=== PATIENT | male | born 1975 | race Hispanic/Latino ===

== ENCOUNTER 2017-02-06 16:55 | Inpatient (IN) | payer MEDICAID ==
[2017-02-06 16:55] VITALS: BMI 22.4
[2017-02-06] MEDS ORDERED: Sodium Chloride 0.9% 1,000 ML IV ONE (17:29)
[2017-02-06 17:40] LABS: BASO % 0.3 % (0.0-2.0); EOS # 0.1 K/uL (0.0-0.7); EOS % 0.5 % (0.0-4.0); HEMATOCRIT 50.2 % (35.0-51.0); LYMPH # 1.3 K/uL (1.0-4.3); LYMPH % 12.5 % (20.0-40.0); MEAN CELL VOLUME 93.6 fL (80.0-94.0); MEAN CORPUSCULAR HEMOGLOBIN 32.1 pg (27.0-31.0); MEAN CORPUSCULAR HGB CONC 34.3 g/dL (33.0-37.0); MEAN PLATELET VOLUME 8.5 fL (7.2-11.7); MONO # 0.8 K/uL (0.0-0.8); MONO % 7.3 % (0.0-10.0); WHITE BLOOD COUNT 10.4 K/uL (4.8-10.8)
[2017-02-06 17:45] LABS: CHLORIDE 101 mmol/L (98-107)
[2017-02-06 17:46] LABS: POTASSIUM 4.3 mmol/L (3.6-5.2); SODIUM 139 mmol/L (132-148)
[2017-02-06 17:48] LABS: ALB/GLOB RATIO 1.2 (1.0-2.1); ALKALINE PHOSPHATASE 60 U/L (38-126); ALT/SGPT 20 U/L (21-72); AST/SGOT 22 U/L (17-59); BILIRUBIN,TOTAL 0.9 mg/dL (0.2-1.3); BLOOD UREA NITROGEN 12 mg/dL (9-20); CARBON DIOXIDE 21 mmol/L (22-30); GFR AFRICAN-AMERICAN > 60; GLUCOSE,RANDOM 118 mg/dL (75-110); TOTAL PROTEIN 8.6 g/dL (6.3-8.3)
[2017-02-06 17:49] LABS: ALCOHOL SERUM < 10 mg/dl (0-10); CALCIUM 9.2 mg/dl (8.6-10.4)
--- NOTE | 2017-02-06 18:07 | C.PDOC ---
History Of Present Illness 41-year-old male, presents to the emergency department requesting heroin detox. Patient injects heroin, last use was 14:00 today. Patient has no current physical complaints. Time Seen by Provider: 02/06/17 17:22 Chief Complaint (Nursing): Substance Abuse History Per: Patient History/Exam Limitations: no limitations Onset/Duration Of Symptoms: Days Current Symptoms Are (Timing): Still Present Modifying Factor(s): Narcotics Severity: Mild Past Medical History Reviewed: Historical Data, Nursing Documentation, Vital Signs Vital Signs: Last Vital Signs Temp 97.4 F L 02/06/17 16:58 Pulse 119 H 02/06/17 16:58 Resp 18 02/06/17 16:58 BP 122/81 02/06/17 16:58 Pulse Ox 95 02/06/17 19:03 - Medical History PMH: Anxiety, Depression, Hepatitis, Seizures - [facility] Procedures DETOXIFICATION SERVICES FOR SUBSTANCE ABUSE TREATMENT (07/30/16) Family History: States: No Known Family Hx - Social History Hx Tobacco Use: Yes Hx Alcohol Use: Yes Hx Substance Use: Yes - Immunization History Hx Tetanus Toxoid Vaccination: Yes Hx Influenza Vaccination: No Hx Pneumococcal Vaccination: No Review Of Systems Except As Marked, All Systems Reviewed And Found Negative. Constitutional: Negative for: Fever, Chills Cardiovascular: Negative for: Chest Pain Respiratory: Negative for: Shortness of Breath Neurological: Negative for: Weakness, Numbness Psych: Positive for: Other (heroin dependence). Negative for: Suicidal ideation Physical Exam - Physical Exam Appears: Non-toxic, No Acute Distress, Other (calm and cooperative) Skin: Normal Color, Warm, Dry, No Rash Head: Atraumatic, Normacephalic Eye(s): bilateral: Normal Inspection, PERRL, EOMI Oral Mucosa: Moist Neck: Normal, Normal ROM Cardiovascular: Rhythm Regular Respiratory: Normal Breath Sounds, No Rales, No Rhonchi, No Wheezing Gastrointestinal/Abdominal: Normal Exam, Bowel Sounds, Soft, No Tenderness Extremity: Normal ROM Neurological/Psych: Oriented x3 Gait: Steady ED Course And Treatment - Laboratory Results Result Diagrams: 02/06/17 17:34 02/06/17 17:34 O2 Sat by Pulse Oximetry: 95 (RA) Pulse Ox Interpretation: Normal Progress Note: Blood work, UA, UDS, CXR ordered and reviewed. Disposition - Disposition Disposition Time: 19:00 Condition: STABLE - Clinical Impression Clinical Impression: Heroin dependence - Scribe Statement The provider has reviewed the documentation as recorded by the Scribe Martinez Dejesus All medical record entries made by the Scribe were at my direction and personally dictated by me. I have reviewed the chart and agree that the record accurately reflects my personal performance of the history, physical exam, medical decision making, and the department course for this patient. I have also personally directed, reviewed, and agree with the discharge instructions and disposition. Physician Patient Turnover Patient Signed Over To: Velma Gracia Handoff Comments: pending UA, UDS, CRISIS
[2017-02-06 20:32] LABS: RBC URINE < 1 /hpf (0-3); URINE BACTERIA OCC (<OCC); URINE BILIRUBIN NEGATIVE (NEGATIVE); URINE BLOOD NEGATIVE (NEGATIVE); URINE COLOR Yellow (YELLOW); URINE GLUCOSE (UA) NORMAL (Normal); URINE HYALINE CAST >20 /lpf (0-2); URINE KETONE NEGATIVE (NEGATIVE); URINE LEUKOCYTE ESTERASE NEG Leu/uL (Negative); URINE PROTEIN 2+ mg/dL (NEGATIVE); URINE UROBILINOGEN NORMAL mg/dL (0.2-1.0); WBC URINE 5 /hpf (0-5)
[2017-02-07] MEDS ORDERED: Benzocaine/Menthol (Cepacol) Lozenge PO PRN (00:42)
[2017-02-07] MEDS ORDERED: Aluminum Hydroxide/Magnesium Hydroxide Susp (30 mL) PO PRN (00:42)
--- NOTE | 2017-02-07 10:28 | RAD ---
PROCEDURE: CHEST RADIOGRAPH, 1 VIEW HISTORY: medical clearance COMPARISON: 01/11/2016 FINDINGS: LUNGS: Clear. PLEURA: No pneumothorax or pleural fluid seen. CARDIOVASCULAR: Normal. OSSEOUS STRUCTURES: No significant abnormalities. VISUALIZED UPPER ABDOMEN: Normal. OTHER FINDINGS: None. IMPRESSION: No active disease.
[2017-02-07] MEDS ORDERED: Buprenorphine Hydrochloride 2 mg SL ONE ×2 (11:56→13:00)
--- NOTE | 2017-02-07 14:37 | PCM.PSYCH ---
Initial Psychiatric Evaluation - Initial Psychiatric Evaluation Legal Status: Capacity Chief Complaint (in patient's own words): "I feel disappointed with myself and have no enjoyment" Patient's Reaction to Hospitalization: Positive History of Present Illness and Precipitating Events: The pt is seen, chart reviewed, case discussed. Patient is a 41 year old male. He is single and has two children. The children are 10 and 13 years of age. They currently live with their mother. Patient resides in [place] with his mom and brother. He is currently unemployed and supports himself through his family. 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 Patient reports using heroin intravenously on and off for 20 years. He states that he uses 6 bags a day. The last time he used was at 3pm. He was recently in the detox center here this past July. He went to [facility] after his detox treatment and stayed there for 2 months. The pressure of his brother selling drugs and family caused him to relapse again. He has been to several rehab centers over the course of the 20 years. Pt states he has been to [facility]'s rehab program 7 times and completed a 28 day rehab program in [place] in 2008. He was also hospitalized during this time in [place] due to wrist cutting brought on by a court appearance. He occasionally drinks 1/2 pints of alcohol several times a week and smokes 1/2 pack a day. Patient desires patch due to smoking. He is experiencing flashes, cramping, runny nose and shaking. Pt denies diarrhea, panic attacks or trauma. Patient slept well the night before. Patient is feeling disappointed with himself and has a low self-esteem. Patient denies having suicidal thoughts or hallucinations. His plan is to enter the [facility] outpatient program across the street. He states his brother attended previously and had a positive outcome. Past Psych Hx: Depression, anxiety, bipolar Fam Psych Hx: Substance abuse-brother, Alcoholism-father PMH: Hepatitis C Current Medications: Active Medications Generic Name Dose Route Start Last Admin Trade Name Freq PRN Reason Stop Dose Admin Al Hydrox/Mg Hydrox/Simethicone 30 ml 02/07/17 00:42 Maalox 30 Ml PO TID PRN Indigestion / Heartburn Benzocaine/Menthol 1 migel 02/07/17 00:42 Cepacol Sore Throat PO QID PRN Sore Throat Clonidine HCl 0.1 mg 02/07/17 00:42 Catapres PO Q8 PRN COWS Score More or Equal to 5 Hydroxyzine HCl 25 mg 02/07/17 00:44 Atarax PO Q6 PRN Agitation Loperamide HCl 2 mg 02/07/17 00:42 Imodium PO Q8 PRN Diarrhea Nicotine 1 patch 02/07/17 10:00 02/07/17 09:29 Nicoderm Cq TD 1 patch DAILY SHADY Administration Ondansetron HCl 4 mg 02/07/17 00:42 Zofran Tab PO Q8 PRN Nausea/Vomiting Pseudoephedrine HCl 60 mg 02/07/17 00:42 Sudafed Tab PO QID PRN Nasal/Sinus Congestion Trazodone HCl 50 mg 02/07/17 22:00 Desyrel PO HS SHADY Past Psychiatric History - Past Psychiatric History Pertinent Medical Hx (Current Medical&Sleep Prob, Allergies): Allergies Allergy/AdvReac Type Severity Reaction Status Date / Time No Known Allergies Allergy Verified 02/06/17 17:01 No Known Home Med 02/06/17 Review of Systems - EENT Nose/Mouth/Throat: Nasal Discharge - Gastrointestinal Gastrointestinal: Cramping - Psychiatric Psychiatric: Anxiety, Depression Additional comments: Shaking, flashes Mental Status Examination - Personal Presentation Personal Presentation: Dressed appropriate to season - Affect Affect: Constricted - Motor Activity Motor Activity: Calm - Reliability in Providing Information Reliability in Providing Information: Fair - Speech Speech: Organized - Mood Mood: Depressed, Anxious - Formal Thought Process Formal Thought Process: No Impairment - Cognitive Functions Orientation: Person, Place, Situation, Time Sensorium: Alert Attention/Concentration: Attentive Judgement: Intact, as evidence by: Insight regarding need for hospitalization Memory: Recent intact, as evidence by: Ability to recall events of the day, Remote intact, as evidenced by: Other (Was able to communicate events that occurred throughout the 20 years of substance abuse) - Risk Risk: Seizure, Withdrawal DSM 5 DX - DSM 5 DSM 5 Diagnosis: Opoid withdrawal-severe Major Depressive Disorder-moderate Generalized Anxiety Disorder-moderate - Recommended/Plan of Treatment Treatment Recommendations and Plan of Treatment: Opoids: Subutex Taper As needed meds Attend groups and activities CBT/LA Refer to program Depression: CBT and supportive psychotherapy Attend groups and activities Consider meds Anxiety: Supportive psychotherapy Counseled on outpatient programs Projected ELOS: 4 days - Smoking Cessation Smoking Cessation Initiated: Yes
[2017-02-08] MEDS: Buprenorphine Hydrochloride 2 mg SL SCH (10:02)
--- NOTE | 2017-02-08 15:08 | PCM.PYCHPN ---
Psychiatric Progress Note - Psychiatric Progress Note Patient seen today, length of contact: 18 min Patient Chief Complaint: "I'm doing better, considering" Problems Identified/Issues Discussed: The pt is seen, chart reviewed, case discussed with staff. Patient's mood is positive. He denies cramping and shaking. His current plan is to attend an intensive outpatient program once detox is over. After care discussed, support and psychoeduation given. Medical Problems: Hepatitis C Medication Change: Yes (Subutex taper) Medical Record Reviewed: Yes Mental Status Examination - Cognitive Function Orientation: Person, Place, Situation, Time Memory: Intact Attention: WNL Concentration: WNL Association: [facility] Fund of Knowledge: WN - Mood Mood: Depressed, Anxious - Affect Affect: Constricted - Speech Speech: Appropriate - Formal Thought Process Formal Thought Process: No Impairment - Suicidal Ideation Suicidal Ideation: No - Homicidal Ideation Homicidal Ideation: No Goal/Treatment Plan - Goal/Treatment Plan Need for Continued Stay: Remain at risks for inpatient hospitalization, Discharge may exacerbated symptoms Progress Toward Problem(s) and Goals/Treatment Plan: Opoids: Subutex Taper As needed meds Attend groups and activities CBT/KS Refer to program Depression: CBT and supportive psychotherapy Attend groups and activities Consider meds Anxiety: Supportive psychotherapy Counseled on outpatient programs Estimated Date of D/C: 02/09/17 - Smoking Cessation Smoking Cessation Initiated: Yes
[2017-02-09] MEDS: Buprenorphine Hydrochloride 2 mg SL SCH (09:47)
--- NOTE | 2017-02-09 12:23 | PCM.PYCHPN ---
Psychiatric Progress Note - Psychiatric Progress Note Patient seen today, length of contact: 18 min Patient Chief Complaint: I'm feeling much better Problems Identified/Issues Discussed: Patient seen and evaluated, chart reviewed and discussed with the nurse. The patient reports improvement in his mood but still reports withdrawal symptoms including anxiety and sweating. As per the nurse patient is improving but still reports of anxiety. Patient denies any suicidal ideation or homicidal ideation. Patient is taking medications and denies any side effects. Supportive therapy and psychoeducation were given. Medication Change: Yes (Subutex taper) Medical Record Reviewed: Yes Mental Status Examination - Cognitive Function Orientation: Person, Place, Situation, Time Memory: Intact Attention: WNL Concentration: WNL Association: WNL Fund of Knowledge: WNL - Mood Mood: Anxious - Affect Affect: Constricted - Speech Speech: Appropriate - Formal Thought Process Formal Thought Process: No Impairment - Suicidal Ideation Suicidal Ideation: No - Homicidal Ideation Homicidal Ideation: No Goal/Treatment Plan - Goal/Treatment Plan Need for Continued Stay: Remain at risks for inpatient hospitalization, Discharge may exacerbated symptoms Progress Toward Problem(s) and Goals/Treatment Plan: Opoid withdrawal-severe Major Depressive Disorder-moderate Generalized Anxiety Disorder-moderate Opoids: Subutex Taper As needed meds Attend groups and activities CBT/IN Refer to program Depression: CBT and supportive psychotherapy Attend groups and activities Consider meds Anxiety: Supportive psychotherapy Counseled on outpatient programs Estimated Date of D/C: 02/09/17 - Smoking Cessation Smoking Cessation Initiated: Yes
[2017-02-10] MEDS: Buprenorphine Hydrochloride 2 mg SL SCH (09:26)
--- NOTE | 2017-02-10 12:03 | PCM.PYCHPN ---
Psychiatric Progress Note - Psychiatric Progress Note Patient seen today, length of contact: 15 min Patient Chief Complaint: I'm feeling better Problems Identified/Issues Discussed: Patient seen and evaluated, chart reviewed and discussed with the nurse. as per staff patient is improving and he reports improvement in the withdrawal symptoms. patient reports a little bit anxiety but denies any withdrawal symptoms. He is looking forward to [facility]. Patient denies any suicidal ideation or homicidal ideation. Patient is taking medications and denies any side effects. Supportive therapy and psychoeducation were given. Medication Change: Yes (Subutex taper) Medical Record Reviewed: Yes Mental Status Examination - Cognitive Function Orientation: Person, Place, Situation, Time Memory: Intact Attention: WNL Concentration: WNL Association: WNL Fund of Knowledge: WNL - Mood Mood: Anxious - Affect Affect: Constricted - Speech Speech: Appropriate - Formal Thought Process Formal Thought Process: No Impairment - Suicidal Ideation Suicidal Ideation: No - Homicidal Ideation Homicidal Ideation: No Goal/Treatment Plan - Goal/Treatment Plan Need for Continued Stay: Remain at risks for inpatient hospitalization, Discharge may exacerbated symptoms Progress Toward Problem(s) and Goals/Treatment Plan: Opoid withdrawal-severe Major Depressive Disorder-moderate Generalized Anxiety Disorder-moderate Opoids: Subutex Taper As needed meds Attend groups and activities CBT/[place] Refer to program Depression: CBT and supportive psychotherapy Attend groups and activities Consider meds Anxiety: Supportive psychotherapy Counseled on outpatient programs Estimated Date of D/C: 02/09/17 - Smoking Cessation Smoking Cessation Initiated: Yes
[2017-02-10 19:14] VITALS: RESP 18
[2017-02-11 08:32] VITALS: BP 113/76; PULSE 70; TEMP 98; O2SAT 99
--- NOTE | 2017-02-11 08:38 | PCM.PYCHDC ---
Mental Status Examination - Mental Status Examination Orientation: Person, Place, Situation, Time Memory: Intact Mood: Depressed, Anxious Affect: Constricted Speech: Appropriate Attention: WNL Concentration: WNL Association: WNL Fund of Knowledge: WNL Formal Thought Process: No Impairment Suicidal Ideation: No Current Homicidal Ideation?: No Discharge Summary - Discharge Note Reason for Hospitalization: Opoid withdrawal-severe Major Depressive Disorder-moderate Generalized Anxiety Disorder-moderate Consultations:: List each consultation separately and include: 1. Reason for request. 2. Findings. 3. Follow-up Summary of Hospital Course include:: 1. Description of specific treatment plan utilized for patients during their course of treatmen. 2. Summarize the time- course for resolution of acute symptoms and/or regressed behaviors. 3. Describe issues identified and worked on during hospitalization. 4. Describe medication utilized. 5. Describe medical problems identified and treated. 6. Reassessment of suicide risk Summary of Hospital Course: The pt is seen, chart reviewed, case discussed. Patient is a 41 year old male. He is single and has two children. The children are 10 and 13 years of age. They currently live with their mother. Patient resides in [place] with his mom and brother. He is currently unemployed and supports himself through his family. 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 Patient reports using heroin intravenously on and off for 20 years. He states that he uses 6 bags a day. The last time he used was at 3pm. He was recently in the detox center here this past July. He went to [facility] after his detox treatment and stayed there for 2 months. The pressure of his brother selling drugs and family caused him to relapse again. He has been to several rehab centers over the course of the 20 years. Pt states he has been to [facility]'s rehab program 7 times and completed a 28 day rehab program in [place] in 2008. He was also hospitalized during this time in [place] due to wrist cutting brought on by a court appearance. He occasionally drinks 1/2 pints of alcohol several times a week and smokes 1/2 pack a day. Patient desires patch due to smoking. He is experiencing flashes, cramping, runny nose and shaking. Pt denies diarrhea, panic attacks or trauma. Patient slept well the night before. Patient is feeling disappointed with himself and has a low self-esteem. Patient denies having suicidal thoughts or hallucinations. His plan is to enter the [facility] outpatient program across the street. He states his brother attended previously and had a positive outcome. Past Psych Hx: Depression, anxiety, bipolar Fam Psych Hx: Substance abuse-brother, Alcoholism-father PMH: Hepatitis C Hospital Course: The pt is seen, chart reviewed, case discussed. The pt states he is feeling good today. Pt states mood has improved and states he has a clear head. He attended groups and activities, Mi and CBt used. He was cooperative and pleasant His plan is to attend the [facility] intensive outpatient program in [place]. - Final Diagnosis (DSM 5) Condition upon Discharge: STABLE DSM 5: Opioid withdrawal Opioid simeon d/o - severe Major Depressive Disorder-moderate Generalized Anxiety Disorder-moderate Disposition: HOME/ ROUTINE Follow-up Treatment Plan: Follow-up treatment plan: Continue on below meds Attend aftercare: [facility] Use relapse prevention skills Attend NA Return to ER if experience suicidal ideation, homicidal ideation, agitation. Prescriptions/Medication Reconciliation: traZODone [Desyrel] 50 mg PO HS #30 tab - Smoking Cessation Smoking Cessation Medication prescribed: No - Antipsychotic Medications Pt discharged on 2 or more routine antipsychotic medications: No
[2017-02-11] MEDS: Buprenorphine Hydrochloride 2 mg SL SCH (09:20)
== END 2017-02-11 09:30 | disposition home or self-care (01) | DRG 745 ==
LOC: C.ER 16:55 → C.7D 20:55
PROVIDERS: ADMIT Psychiatry & Neurology Psychiatry; ATTEND Psychiatry & Neurology Psychiatry
PROC: HZ2ZZZZ Detoxification Services for Substance Abuse Treatment (ICD-10-PCS; principal; 2017-02-06)
DX: F11.23 Opioid dependence with withdrawal (principal); F32.9 Major depressive disorder, single episode, unspecified; F17.200 Nicotine dependence, unspecified, uncomplicated; F41.1 Generalized anxiety disorder

== ENCOUNTER 2017-02-17 10:39 | Emergency (ER) | payer MEDICAID ==
[2017-02-17 10:39] VITALS: BMI 22.4
[2017-02-17] MEDS ORDERED: Morphine 4 MG/ML VIAL ONE ×2 (11:41→13:54)
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
[2017-02-17 11:51] VITALS: RESP 16; TEMP 98
--- NOTE | 2017-02-17 12:20 | CT ---
PROCEDURE: CT HEAD WITHOUT CONTRAST. HISTORY: injury COMPARISON: None available. TECHNIQUE: Axial computed tomography images were obtained through the head/brain without intravenous contrast. Radiation dose: Total exam DLP = 869.49 mGy-cm. This CT exam was performed using one or more of the following dose reduction techniques: Automated exposure control, adjustment of the mA and/or kV according to patient size, and/or use of iterative reconstruction technique. FINDINGS: HEMORRHAGE: No intracranial hemorrhage. BRAIN: No mass effect or edema. The mercer-white matter differentiation appears intact. Please note that MRI with diffusion imaging is more sensitive in the detection of acute ischemic event. VENTRICLES: No hydrocephalus. CALVARIUM: Unremarkable. PARANASAL SINUSES: Unremarkable as visualized. No significant inflammatory changes. MASTOID AIR CELLS: Unremarkable as visualized. No inflammatory changes. OTHER FINDINGS: None. IMPRESSION: No acute intracranial pathology identified.
--- NOTE | 2017-02-17 12:24 | CT ---
CT maxillofacial bones without IV contrast Indication: Injury Comparison: Noncontrast head performed the same day. Technique: Axial computed tomography images were obtained of the maxillofacial bones without the use of intravenous contrast. Coronal and sagittal reformatted images were generated and reviewed. This CT exam was performed using 1 or more of the falling dose reduction techniques: Automated exposure control, adjustment of the MAA and/or kV according to patient size, and/or use of iterative reconstruction technique. Radiation dose: Total exam DLP = 798.85 mGy-cm. Findings: Streak artifact from dental hardware. The facial bones appear intact without acute displaced fracture identified. The orbits appear unremarkable. The temporomandibular joints are located. The mastoid air cells appear clear. Mild mucosal thickening of the right maxillary sinus. The paranasal sinuses appear otherwise unremarkable without air air-fluid levels. The visualized brain appears normal. Impression: No acute findings identified. See above.
--- NOTE | 2017-02-17 12:57 | RAD ---
PROCEDURE: Left Knee Radiographs. HISTORY: COMPARISON: None available FINDINGS: BONES: No acute displaced fracture. JOINTS: No dislocation. JOINT EFFUSION: Trace suprapatellar joint effusion. OTHER FINDINGS: None. IMPRESSION: Trace suprapatellar joint effusion. No acute displaced fracture or dislocation identified. If symptoms persist, or if there is continued clinical concern, x-ray follow-up in 7-10 days should be considered.
--- NOTE | 2017-02-17 13:04 | RAD ---
PROCEDURE: Left wrist radiographs Left hand radiographs HISTORY: injury COMPARISON: None available. FINDINGS: Comminuted impacted fracture of the distal radius with intra-articular extension. Displaced acute fracture deformity of the ulna styloid. The remainder of the visualized osseous structures appear intact. Soft tissue swelling. No evidence of radiopaque foreign body. IMPRESSION: Comminuted impacted fracture deformity of the distal radius with intra-articular extension. Displaced acute fracture deformity of the ulna styloid. As associated soft tissue swelling.
--- NOTE | 2017-02-17 13:05 | RAD ---
PROCEDURE: Radiographs of the left elbow. HISTORY: injury COMPARISON: None available. FINDINGS: BONES: No acute displaced fracture. JOINTS: No dislocation. SOFT TISSUES: Unremarkable. No evidence of radiopaque foreign body. JOINT EFFUSION: No significant joint effusion. OTHER FINDINGS: None IMPRESSION: No acute displaced fracture, dislocation, or significant joint effusion identified. If symptoms persist, or if there is continued clinical concern, x-ray follow-up in 7-10 days should be considered.
[2017-02-17 13:57] VITALS: BP 128/71; PULSE 72; O2SAT 98
== END 2017-02-17 14:49 | disposition home or self-care (01) ==
LOC: C.ER 10:39
DX: S52.592A Other fractures of lower end of left radius, initial encounter for closed fracture (principal); S52.612A Displaced fracture of left ulna styloid process, initial encounter for closed fracture; S05.11XA Contusion of eyeball and orbital tissues, right eye, initial encounter; S00.81XA Abrasion of other part of head, initial encounter; W18.30XA Fall on same level, unspecified, initial encounter; Y93.55 Activity, bike riding
CPT/HCPCS: 29125; 70450; 70486; 73080; 73110; 73130; 73562; 96372; 99285; J2270

== ENCOUNTER 2017-02-17 19:22 | Emergency (ER) | payer MEDICAID ==
[2017-02-17 19:23] VITALS: BMI 22.4
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
[2017-02-17 21:06] VITALS: BP 115/79; PULSE 95; RESP 18; TEMP 97.4; O2SAT 95
== END 2017-02-17 21:09 ==
LOC: C.ER 19:22
DX: S62.102G Fracture of unspecified carpal bone, left wrist, subsequent encounter for fracture with delayed healing (principal); S00.83XD Contusion of other part of head, subsequent encounter; Y08.89XD Assault by other specified means, subsequent encounter